=== PATIENT | male | born 1970 | race African-American/Black ===

== ENCOUNTER 2019-11-14 10:07 | Emergency (ER) | payer MEDICAID ==
[~2019-11-14] VITALS: Ht 180.3 cm; Wt 81.0 kg
[2019-11-14 10:12] VITALS: BP 130/74
== END 2019-11-14 10:51 | disposition home or self-care (01) ==
LOC: ER 10:46
DX: E11.65 Type 2 diabetes mellitus with hyperglycemia (principal); I10 Essential (primary) hypertension; Z76.0 Encounter for issue of repeat prescription
CPT/HCPCS: 82962; 99283

== ENCOUNTER 2019-11-15 09:10 | Inpatient (IN) | payer MEDICAID, OTHER ==
[~2019-11-15] VITALS: Ht 180.3 cm; Wt 77.1 kg
[2019-11-15] MEDS ORDERED: ACETAMINOPHEN 325MG TABLET PO ONE (09:30)
[2019-11-15] MEDS ORDERED: SODIUM CHLORIDE 0.9% 1000ML BAG (SEPSIS BOLUS) IV ONE (09:30)
[2019-11-15 10:00] LABS: HEMATOCRIT. 30.9 % (42.0-52.0); HEMOGLOBIN. 10.5 g/dL (14.0-18.0); MEAN CORPUSCULAR HEMOGLOBIN 34.3 pg (28.0-32.0); MEAN CORPUSCULAR VOLUME 101.3 fL (80.0-94.0); MEAN PLATELET VOLUME 8.3 fl (7.4-10.4); PLATELET 83 x1000/uL (130-400); RED BLOOD CELL COUNT 3.05 mill/uL (4.7-6.1); RED CELL DISTRIBUTION WIDTH 18.5 % (11.6-14.6)
[2019-11-15 10:08] LABS: INR 1.5; PROTHROMBIN TIME 15.1 sec (9.6-11.0)
[2019-11-15 10:12] LABS: CHLORIDE 110 mEq/L (98-107)
[2019-11-15 10:59] LABS: PLATELET ESTIMATE MARKEDLY DECREASED
[2019-11-15] MEDS ORDERED: LACTULOSE 20G/30ML UDC PO ONE (11:15)
[2019-11-15] MEDS ORDERED: VANCOMYCIN 1 G PREMIX 200 ML IV ONE (11:15)
[2019-11-15] MEDS ORDERED: PIPERACILLIN/TAZ 3.375G PREMIX 50 ML IV ONE (11:15)
[2019-11-15 12:09] LABS: CLARITY URINE CLEAR (CLEAR); COLOR URINE DARK YELLOW (YELLOW); KETONES URINE NEGATIVE (NEGATIVE); LEUKOCYTE ESTERASE URINE NEGATIVE (NEGATIVE); NITRITE URINE NEGATIVE (NEGATIVE); OCCULT BLOOD URINE 1+ (NEGATIVE); PROTEIN URINE TRACE (NEGATIVE); SPECIFIC GRAVITY URINE 1.012 (1.005-1.030)
[2019-11-15] MEDS ORDERED: IPRATROPIUM/ALBUTEROL 0.5-3(2.5)MG/3ML NEB NEB PRN (14:45)
[2019-11-15] MEDS ORDERED: DOCUSATE SODIUM 100MG CAPSULE PO PRN (14:45)
[2019-11-15] MEDS ORDERED: MAGNESIUM/ALUMINUM HYDROXIDE/SIMETHICONE 30ML UDC PO PRN (14:45)
[2019-11-15] MEDS ORDERED: HYDROCODONE/ACETAMINOPHEN 5/325MG TABLET PO PRN (14:45)
[2019-11-15] MEDS ORDERED: PIPERACILLIN/TAZ 3.375G PREMIX 50 ML IV SCH (14:45)
[2019-11-15] MEDS ORDERED: GUAIFENESIN 200MG/10ML SUGAR FREE UDC PO PRN (14:45)
[2019-11-15] MEDS ORDERED: CLONIDINE 0.1MG TABLET PO PRN (14:45)
[2019-11-15] MEDS ORDERED: LORAZEPAM 2MG/ML CPJ IV PRN (14:45)
[2019-11-15] MEDS ORDERED: ONDANSETRON HCL 4MG/2ML INJ IV PRN (14:45)
[2019-11-15] MEDS ORDERED: ACETAMINOPHEN 325MG TABLET PO PRN (14:45)
[2019-11-15 15:39] VITALS: BP 133/84
[2019-11-15 15:41] VITALS: BP 133/84
[2019-11-15] MEDS ORDERED: POTASSIUM CHLORIDE INJ 40 MEQ in DEXT 5% WATER 500 ML IV ONE (16:00)
[2019-11-15] MEDS: SODIUM CHLORIDE 0.45% 1,000 ML IV SCH (16:30)
[2019-11-15] MEDS ORDERED: ENOXAPARIN 40MG/0.4ML SYR SUBCUT SCH (17:30)
[2019-11-15 17:47] VITALS: BP 114/62
[2019-11-15 18:02] LABS: CHLORIDE 112 mEq/L (98-107)
[2019-11-15 20:00] VITALS: BP 115/75
[2019-11-15] MEDS ORDERED: NA PHOS,M-B/NA PHOS,DI-BA ENEMA 118ML PR PRN (20:00)
[2019-11-15] MEDS: LACTULOSE 20G/30ML UDC PO SCH (21:36)
[2019-11-15] MEDS: MORPHINE SULFATE 2 MG/ML CPJ (NOT FOR IM USE) IV PRN (21:43)
[2019-11-15 22:00] VITALS: BP 110/73
[2019-11-15] MEDS ORDERED: LACTULOSE 20G/30ML UDC PO SCH (22:00)
[2019-11-15] MEDS: PIPERACILLIN/TAZOBACTAM 3.375 G in DEXT 5% WATER 100 ML IV SCH (22:47)
[2019-11-15 23:30] LABS: *BARBITURATES SCREEN URINE NEGATIVE (NEGATIVE)
[2019-11-15 23:31] LABS: *AMPHETAMINES SCREEN URINE NEGATIVE (NEGATIVE); *BENZODIAZEPINES SCREEN URINE NEGATIVE (NEGATIVE); *COCAINE SCREEN URINE NEGATIVE (NEGATIVE); METHADONE URINE SCREEN NEGATIVE (NEGATIVE); OPIATES URINE SCREEN NEGATIVE (NEGATIVE); PHENCYCLIDINE URINE SCREEN NEGATIVE (NEGATIVE)
[2019-11-15 23:32] LABS: CANNABINOID URINE SCREEN NEGATIVE (NEGATIVE)
[2019-11-16] VITALS (12 sets, daily range): BP systolic 104–148; BP diastolic 65–109
[2019-11-16] MEDS: PIPERACILLIN/TAZOBACTAM 3.375 G in DEXT 5% WATER 100 ML IV SCH ×4 (00:30→19:01)
[2019-11-16] MEDS ORDERED: DEXTROSE 50% WATER 50ML SYRINGE IV PRN (00:30)
[2019-11-16] MEDS: MORPHINE SULFATE 2 MG/ML CPJ (NOT FOR IM USE) IV PRN ×3 (05:01→20:22)
[2019-11-16] MEDS: LACTULOSE 20G/30ML UDC PO SCH ×3 (05:53→22:15)
[2019-11-16] MEDS: BLOOD SUGAR DIAGNOSTIC STRIP TEST SCH ×4 (05:53→21:30)
[2019-11-16] MEDS: INSULIN LISPRO 100 UNITS/ML SUBCUT SCH ×4 (07:20→22:14)
[2019-11-16 07:39] LABS: CHLORIDE 111 mEq/L (98-107)
[2019-11-16 07:48] LABS: HDL CHOLESTEROL 21 mg/dL (40-59); LDL CHOLESTEROL 107 mg/dL (5-100); T4 FREE 1.47 ng/dL (0.76-1.46)
[2019-11-16 07:52] LABS: BASOPHILS % 0.6 % (0.0-2.0); EOSINOPHILS % 1.6 % (0.0-5.0); HEMATOCRIT. 24.2 % (42.0-52.0); HEMOGLOBIN. 8.4 g/dL (14.0-18.0); LYMPHOCYTES % 9.7 % (20.0-50.0); MEAN CORPUSCULAR HEMOGLOBIN 35.5 pg (28.0-32.0); MEAN PLATELET VOLUME 8.9 fl (7.4-10.4); MONOCYTES % 8.3 % (2.0-8.0); NEUTROPHILS % 79.8 % (40.0-76.0); RED BLOOD CELL COUNT 2.37 mill/uL (4.7-6.1); RED CELL DISTRIBUTION WIDTH 18.4 % (11.6-14.6)
[2019-11-16] MEDS ORDERED: MAGNESIUM 2 G PREMIX 50 ML IV NR (10:30)
[2019-11-16] MEDS ORDERED: POTASSIUM CHLORIDE INJ 40 MEQ in DEXT 5% WATER 500 ML IV NR (11:00)
[2019-11-16] MEDS: RIFAXIMIN 550 MG TABLET PO SCH ×2 (11:48→20:20)
[2019-11-16] MEDS: SODIUM CHLORIDE 0.45% 1,000 ML IV SCH (16:39)
[2019-11-16 17:34] LABS: HEPATITIS B SURFACE ANTIGEN NEGATIVE
[2019-11-16 18:03] LABS: HEPATITIS A AB IGM NEGATIVE (NEGATIVE)
[2019-11-16] MEDS: ATORVASTATIN CALCIUM 40MG TABLET PO SCH (20:20)
[2019-11-16] MEDS: METOPROLOL TARTRATE 25MG TABLET PO SCH (20:21)
[2019-11-17] VITALS (12 sets, daily range): BP systolic 100–134; BP diastolic 58–83
[2019-11-17] MEDS: PIPERACILLIN/TAZOBACTAM 3.375 G in DEXT 5% WATER 100 ML IV SCH ×4 (05:59→20:54)
[2019-11-17] MEDS: LACTULOSE 20G/30ML UDC PO SCH ×3 (05:59→21:21)
[2019-11-17] MEDS: BLOOD SUGAR DIAGNOSTIC STRIP TEST SCH ×4 (06:14→20:51)
[2019-11-17 06:35] LABS: BASOPHILS % 0.8 % (0.0-2.0); HEMATOCRIT. 26.6 % (42.0-52.0); HEMOGLOBIN. 9.2 g/dL (14.0-18.0); LYMPHOCYTES % 11.5 % (20.0-50.0); MEAN CORPUSCULAR HEMOGLOBIN 35.4 pg (28.0-32.0); MEAN CORPUSCULAR VOLUME 102.5 fL (80.0-94.0); MEAN PLATELET VOLUME 8.9 fl (7.4-10.4); MONOCYTES % 8.4 % (2.0-8.0); NEUTROPHILS % 76.3 % (40.0-76.0); RED BLOOD CELL COUNT 2.59 mill/uL (4.7-6.1)
[2019-11-17 06:58] LABS: PLATELET 49 x1000/uL (130-400)
[2019-11-17] MEDS: INSULIN LISPRO 100 UNITS/ML SUBCUT SCH ×4 (07:49→20:49)
[2019-11-17 07:51] LABS: CHLORIDE 108 mEq/L (98-107)
[2019-11-17 07:53] LABS: PLATELET ESTIMATE MARKEDLY DECREASED
[2019-11-17] MEDS: RIFAXIMIN 550 MG TABLET PO SCH ×2 (08:46→20:51)
[2019-11-17] MEDS: METOPROLOL TARTRATE 25MG TABLET PO SCH ×2 (08:46→20:51)
[2019-11-17] MEDS: MORPHINE SULFATE 2 MG/ML CPJ (NOT FOR IM USE) IV PRN ×2 (08:47→21:09)
[2019-11-17] MEDS: SODIUM CHLORIDE 0.45% 1,000 ML IV SCH (14:47)
[2019-11-17] MEDS: PROPRANOLOL HCL 10MG TABLET PO SCH (20:51)
[2019-11-17] MEDS: ATORVASTATIN CALCIUM 40MG TABLET PO SCH (20:51)
[2019-11-17] MEDS: DIPHENHYDRAMINE 50MG/ML VIAL IV PRN (21:41)
[2019-11-17 22:46] LABS: PLATELET 45 x1000/uL (130-400)
[2019-11-18] VITALS (11 sets, daily range): BP systolic 103–141; BP diastolic 51–103
[2019-11-18] MEDS: PIPERACILLIN/TAZOBACTAM 3.375 G in DEXT 5% WATER 100 ML IV SCH ×3 (01:43→14:00)
[2019-11-18] MEDS: DIPHENHYDRAMINE 50MG/ML VIAL IV PRN (03:21)
[2019-11-18] MEDS: LACTULOSE 20G/30ML UDC PO SCH ×2 (05:02→14:06)
[2019-11-18] MEDS: BLOOD SUGAR DIAGNOSTIC STRIP TEST SCH ×2 (06:50→11:54)
[2019-11-18] MEDS: RIFAXIMIN 550 MG TABLET PO SCH (08:11)
[2019-11-18] MEDS: PROPRANOLOL HCL 10MG TABLET PO SCH (08:11)
[2019-11-18] MEDS: METOPROLOL TARTRATE 25MG TABLET PO SCH (08:12)
[2019-11-18] MEDS: INSULIN LISPRO 100 UNITS/ML SUBCUT SCH ×2 (08:16→12:06)
[2019-11-18 09:59] LABS: BASOPHILS % 0.8 % (0.0-2.0); EOSINOPHILS % 2.6 % (0.0-5.0); HEMATOCRIT. 26.2 % (42.0-52.0); HEMOGLOBIN. 8.8 g/dL (14.0-18.0); LYMPHOCYTES % 12.5 % (20.0-50.0); MEAN CORPUSCULAR HEMOGLOBIN 34.7 pg (28.0-32.0); MEAN CORPUSCULAR VOLUME 103.6 fL (80.0-94.0); MONOCYTES % 8.9 % (2.0-8.0); NEUTROPHILS % 75.2 % (40.0-76.0); PLATELET 54 x1000/uL (130-400); RED BLOOD CELL COUNT 2.53 mill/uL (4.7-6.1); RED CELL DISTRIBUTION WIDTH 18.2 % (11.6-14.6)
[2019-11-18 10:01] LABS: CHLORIDE 109 mEq/L (98-107)
[2019-11-18] MEDS: SODIUM CHLORIDE 0.45% 1,000 ML IV SCH (14:03)
[2019-11-18] MEDS ORDERED: MAGNESIUM 2 G PREMIX 50 ML IV SCH (15:00)
== END 2019-11-18 18:39 | DRG 720 ==
LOC: ER 09:10 → 3WST 13:22 → EDBEDREQ 13:32 → EDBEDREQTM 13:32 → ENRESERV 14:23
PROVIDERS: ADMIT Internal Medicine; ATTEND Internal Medicine
PROC: 4A10X4Z Monitoring of Central Nervous Electrical Activity, External Approach (ICD-10-PCS; principal; 2019-11-16)
DX: A41.81 Sepsis due to Enterococcus (principal); I21.4 Non-ST elevation (NSTEMI) myocardial infarction; K72.00 Acute and subacute hepatic failure without coma; E43 Unspecified severe protein-calorie malnutrition; G93.41 Metabolic encephalopathy; D68.4 Acquired coagulation factor deficiency; K76.6 Portal hypertension; D69.6 Thrombocytopenia, unspecified; E87.2 Acidosis; K74.60 Unspecified cirrhosis of liver; D63.8 Anemia in other chronic diseases classified elsewhere; E87.6 Hypokalemia; E87.8 Other disorders of electrolyte and fluid balance, not elsewhere classified; I11.9 Hypertensive heart disease without heart failure; E11.9 Type 2 diabetes mellitus without complications; F10.10 Alcohol abuse, uncomplicated; Y90.9 Presence of alcohol in blood, level not specified; S51.812A Laceration without foreign body of left forearm, initial encounter; X58.XXXA Exposure to other specified factors, initial encounter; D53.9 Nutritional anemia, unspecified; E83.42 Hypomagnesemia; R18.8 Other ascites; I25.2 Old myocardial infarction; Y93.89 Activity, other specified; Y92.89 Other specified places as the place of occurrence of the external cause; Y99.8 Other external cause status; Z79.899 Other long term (current) drug therapy; Z68.23 Body mass index [BMI] 23.0-23.9, adult
CPT/HCPCS: 36415; 71045; 76700; 80048; 80053; 80061; 80076; 80305; 81003; 82140; 82270; 82693; 82962; 83605; 83735; 84134; 84145; 84439; 84443; 84484; 85025; 86705; 86709; 86803; 87340; 87804; 93005; 93306; 99291; C1893; J1200; J1650; J1815; J2060; J2270; J2543; J3370; J3475; J3480; J7030; J7060